=== PATIENT | male | born 1975 | race Caucasian/White ===

== ENCOUNTER 2018-11-03 09:53 | Emergency (ER) | payer OTHER ==
[~2018-11-03] VITALS: Ht 182.9 cm; Wt 63.5 kg
[2018-11-03 09:53] VITALS: BP 142/87
[2018-11-03] MEDS ORDERED: ZOLOFT50 MG PO (09:57)
== END 2018-11-03 10:27 ==
LOC: M.ERS 09:53
DX: F41.0 Panic disorder [episodic paroxysmal anxiety] (principal); F31.9 Bipolar disorder, unspecified

== ENCOUNTER 2019-02-13 21:20 | Emergency (ER) | payer OTHER ==
[~2019-02-13] VITALS: Ht 188 cm; Wt 68.0 kg
[~2019-02-13 21:20] MED LIST: ZOLOFT50 MG PO
[2019-02-13] MEDS ORDERED: NOHOMEMEDICATIONS (21:36)
[2019-02-13 23:42] VITALS: BP 149/63
== END 2019-02-13 23:44 ==
LOC: M.ERS 21:20
DX: S66.811A Strain of other specified muscles, fascia and tendons at wrist and hand level, right hand, initial encounter (principal); F32.9 Major depressive disorder, single episode, unspecified; F41.9 Anxiety disorder, unspecified; F17.210 Nicotine dependence, cigarettes, uncomplicated; W22.8XXA Striking against or struck by other objects, initial encounter; Y93.89 Activity, other specified; Y92.89 Other specified places as the place of occurrence of the external cause; Y99.8 Other external cause status